=== PATIENT | female | born 1970 | race Caucasian/White ===

== ENCOUNTER 2019-03-29 11:30 | Emergency (ER) | payer SELFPAY ==
[~2019-03-29] VITALS: Ht 162.6 cm; Wt 81.0 kg
[2019-03-29] MEDS ORDERED: HYDROCODONE/ACETAMINOPHEN 5/325MG TABLET PO ONE (12:30)
[2019-03-29] MEDS ORDERED: KETOROLAC 30MG/ML VIAL IM ONE (12:30)
[2019-03-29 13:59] VITALS: BP 130/70
== END 2019-03-29 14:01 | disposition home or self-care (01) ==
LOC: ER 11:30
DX: S16.1XXA Strain of muscle, fascia and tendon at neck level, initial encounter (principal); S09.90XA Unspecified injury of head, initial encounter; R07.89 Other chest pain; M54.5 Low back pain; J45.909 Unspecified asthma, uncomplicated; I10 Essential (primary) hypertension; V49.88XA Car occupant (driver) (passenger) injured in other specified transport accidents, initial encounter; Y93.89 Activity, other specified; Y92.89 Other specified places as the place of occurrence of the external cause; Y99.8 Other external cause status
CPT/HCPCS: 71045; 72100; 73030; 81025; 93005; 96372; 99283; J1885